=== PATIENT | male | born 1945 | race Two or more races ===

== ENCOUNTER 2020-04-24 14:23 | Outpatient (CLI) | payer OTHER ==
[2020-04-30] MEDS ORDERED: VASOTEC5 MG PO (11:13)
[2020-04-30] MEDS ORDERED: ZOCOR20 MG PO (11:13)
[2020-04-30] MEDS ORDERED: JANUVIA25 MG PO (11:13)
[2020-04-30] MEDS ORDERED: GLIMEPIRIDE2 M1 PO (11:14)
[2020-04-30] MEDS ORDERED: HUMULIN 70100 UNIT/2 (11:14)
== END 2020-04-24 14:30 | disposition home or self-care (01) ==
LOC: RAD 14:23
PROVIDERS: ATTEND Urology
DX: I11.9 Hypertensive heart disease without heart failure (principal)

== ENCOUNTER 2020-05-07 05:20 | Day surgery (SDC) | payer OTHER ==
[~2020-05-07 05:20] MED LIST: GLIMEPIRIDE2 M1 PO; HUMULIN 70100 UNIT/2; JANUVIA25 MG PO; VASOTEC5 MG PO; ZOCOR20 MG PO
== END 2020-05-07 13:10 | disposition home or self-care (01) ==
LOC: CIR.AMB 05:20
PROVIDERS: ATTEND Urology
DX: C67.2 Malignant neoplasm of lateral wall of bladder (principal); Z20.828 Contact with and (suspected) exposure to other viral communicable diseases